=== PATIENT | male | born 1970 | race Caucasian/White ===

== ENCOUNTER 2018-04-07 15:58 | Outpatient (REF) | payer MEDICAID, SELFPAY ==
[2018-04-07 21:51] LABS: HCT 38.8 % (40.0-50.0); HGB 13.2 g/dL (13.5-17.5); Mean Corpuscular Hemoglobin 30.6 pg (27.0-33.0); Mean Corpuscular Volume 89.8 fL (80-95); Platelet Count 105 x1000/uL (130-400); RBC 4.32 m/cumm (4.50-6.00); RBC Distribution Width 13.8 % (11.8-14.1); White Blood Cell Count 4.58 k/cumm (4.4-10.8)
[2018-04-07 21:58] LABS: Iron 109 ug/dL (50-175); Total Iron Binding Capacity 337 ug/dL (250-450); Transferrin Sat 32 % (20-55)
[2018-04-07 22:13] LABS: ALT 33 U/L (12-78); AST 37 U/L (15-37); Albumin 4.4 g/dL (3.4-5.0); Alkaline Phosphatase 107 U/L (46-116); Anion Gap 8.2 mmol/L (3-11); BUN 15 mg/dL (7-18); Bilirubin, Total 0.7 mg/dL (0.2-1.0); CO2 26.8 mmol/L (21.0-32.0); CREATININE 1.16 mg/dL (0.70-1.30); Chloride 99 mmol/L (98-107); Ferritin 33 ng/mL (8-388); Glucose 113 mg/dL (70-100); Potassium 4.2 mmol/L (3.5-5.1); Sodium 134 mmol/L (136-145); Total Protein 8.5 g/dL (6.4-8.2)
[2018-04-10 10:44] LABS: Hep A Total Ab w Rflx IgM Negative (NEGAT); Hep B Core Antibody Negative (NEGAT); Hepatitis C Ab w Rflx HCV PCR Reactive (NEGAT)
[2018-04-10 10:57] LABS: HBs Antibody, Quant 3.4 mIU/mL; Hepatitis B Surface Ab Negative
[2018-04-11 14:39] LABS: HCV RNA Detection Quantitative Undetected IU/mL (UNDECT)
== END 2018-04-07 16:18 ==
LOC: NCHCN 15:58
PROVIDERS: Visit Provider Family Medicine
DX: E83.119 Hemochromatosis, unspecified (principal); E11.9 Type 2 diabetes mellitus without complications; B19.20 Unspecified viral hepatitis C without hepatic coma; F19.10 Other psychoactive substance abuse, uncomplicated
CPT/HCPCS: 80053; 85027; 86704; 86706; 86709; 86803; 82728; 83540; 83550; 87522